=== PATIENT | female | born 1985 | race Hispanic/Latino ===

== ENCOUNTER 2018-07-19 07:56 | Day surgery (SDC) | payer OTHER ==
[2018-07-19 08:05] LABS: Specific Gravity 1.025 (1.005-1.030)
[2018-07-19 08:06] LABS: Absolute Lymphocytes (CBC) 2.6 K/uL (0.7-4.9); Absolute Monocytes 0.4 K/uL (0.1-1.3); Absolute Neutrophil 2.4 K/uL (1.8-8.0); Basophils % 0.6 % (0-1.3); Eosinophils % 1.3 % (0-4.4); Hematocrit 40.3 % (36.0-45.0); Lymphocytes % 46.9 % (15.3-44.8); MPV 9.2 fL (7.6-11.3); Monocytes % 6.8 % (3.3-12.3); RBC Red Blood Cell Count 4.38 M/uL (3.86-4.86)
[2018-07-19] MEDS ORDERED: SCOPOLAMINE HYDROBROMIDE PATCH TD ONE (08:25)
[2018-07-19] MEDS ORDERED: CEFAZOLIN/SWI 1gm 1 GM/10 ML SYR ONE (08:25)
[2018-07-19] MEDS ORDERED: Ringers Lactate 1,000 ML IV ONE ×3 (08:25→08:43)
[2018-07-19] MEDS ORDERED: EPINEPHRINE/PF 1 MG/ML AMP ONE (08:41)
[2018-07-19] MEDS ORDERED: CEFAZOLIN SODIUM 1 GM/VIAL ONE (08:41)
[2018-07-19] MEDS ORDERED: GENTAMICIN SULF 80 MG/2ML INJ ONE (08:42)
[2018-07-19] MEDS ORDERED: BACITRACIN 50000 UNIT VIAL ONE (08:42)
[2018-07-19] MEDS ORDERED: Mastisol Adhesive Liq ONE (08:42)
[2018-07-19] MEDS ORDERED: NA CHLORIDE 0.9% 1,000 ML ONE (08:42)
[2018-07-19] MEDS ORDERED: NS 0.9% VIAL 20 ML ONE (08:43)
[2018-07-19] MEDS ORDERED: MIDAZOLAM HCL 2 MG/2 ML INJ ONE (08:52)
[2018-07-19] MEDS ORDERED: PROPOFOL 200 MG/20 ML VIAL IV ONE (08:52)
[2018-07-19] MEDS ORDERED: DEXAMETHASONE 10 MG/ML VIAL ONE (08:52)
[2018-07-19] MEDS ORDERED: LIDOCAINE 1% MPF 5 ML VIAL ONE (08:53)
[2018-07-19] MEDS ORDERED: VECURONIUM 10 MG/VIAL IV ONE (08:53)
[2018-07-19] MEDS ORDERED: FENTANYL CITR 250 MCG/5 ML ONE ×2 (08:53→11:37)
[2018-07-19] MEDS ORDERED: KETOROLAC 30 MG/ML INJ ONE ×2 (08:53→13:20)
[2018-07-19] MEDS ORDERED: NS 0.9% VIAL 10 ML ONE (08:53)
[2018-07-19] MEDS ORDERED: ONDANSETRON 4 MG/2 ML VIAL ONE ×2 (08:53→13:21)
[2018-07-19] MEDS ORDERED: ROCURONIUM 50 MG/5 ML VIAL IV ONE ×2 (11:03→12:33)
[2018-07-19] MEDS ORDERED: Phenylephrine HCl 10 MG/ML 1 ML VIAL ONE (11:21)
[2018-07-19] MEDS ORDERED: GLYCOPYRROLATE 0.2 MG/ML SYR ONE (13:20)
[2018-07-19] MEDS ORDERED: NEOSTIGMINE 1 MG/ML -10 ML VIAL ONE (13:21)
[2018-07-19] MEDS: HYDROMORPHONE HCL 1 MG/ML INJ ONE ×2 (15:26→15:38)
[2018-07-19] MEDS ORDERED: PROMETHAZINE 25 MG/ML VIAL ONE (15:35)
[2018-07-19] MEDS ORDERED: HYDROMORPHONE HCL 1 MG/ML INJ ONE (15:55)
[2018-07-19] MEDS ORDERED: HYDROCODONE/APAP 7.5/325 MG TAB ONE (16:40)
--- NOTE | 2018-07-20 02:33 | OP ---
Surgeon: Rafael Dowd MD Manager Math: Emanuel. 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 Procedures Performed: Breast lift with fat transfer and liposuction, flanks. Anesthesia: General. Procedure In Detail: After satisfactory induction of general anesthesia, the chest, the abdomen, and flanks were prepped with DuraPrep. Dry sterile drapes were applied in the usual manner. A tumescen t liposuction was performed. An incision made cephalad to anterior iliac spine with a 15-blade. Ab out 2-mm infusion cannula was placed, and both sides were infused approximately 500 cc per side. The n, a 4-mm was used to aspirate. Approximately 450 cc were removed from each side. Wounds were close d later with 4-0 PDS, and liposuction of arm was applied. Attention was turned to the breasts. A 45 -mm template was used to outline the right areola. Then, transverse and curvilinear inferior incisio ns were made. The intervening skin was de-epithelialized with EpiCut or dermabrader. Then, the flap was elevated cephalad toward the clavicle, anterior axillary line, and sternum. Both sides were don e simultaneously. An inferior incision was made. The flap was rotated into cone. Conization was pe rformed with 2-0 PDS sutures, and then straps were elevated at 12 o'clock, 1:30 o'clock position on t he right side, and the 3 o'clock position. Mirror image on the left side. After straps were elevate d, in and out of the pectoralis major muscle, sewn past back to the base of the cone, and eventually tied to themselves with 2-0 PDS. The 3 o'clock strap was sewn over the sternum at 3 o'olya ck position with 2-0 Ethibond. Left side was done in mirror-image manner. The wound was carefully s tapled shut. Dog ears were cut out laterally, and then the wounds were closed after #10 BENJAMIN drain was brought out of the axilla and sewn in place with 2-0 silk, closed with 3-0 Vicryl subcu, 3-0 PDS run stephanie subcuticular, tied in the vertical meridian of the breast. At this point, the patient was sat u p. Site for new nipple-areolar complex was marked out, tissue cored out, nipple delivered, and then the fat that had been aspirated and had been by gravity, and approximately 70 cc were inje cted in the right breast and 94 in the left. The amount of tissue removed from the right breast was 50 and left breast was 76. Then, the nipple-areolar complex was closed with interrupted 4-0 PDS runn ing subcuticular. Dressings consisted of tincture of benzoin, Steri-Strips, 5x5s, fluffs, and Leeroy wr ap. The patient tolerated the procedure well and returned to Recovery. ANA/MIRIAN Voice ID: [id number] Report ID: [id number]
== END 2018-07-19 17:41 | disposition home or self-care (01) ==
LOC: OR 07:56
PROVIDERS: ATTEND Specialist
PROC: 0H0V0ZZ Alteration of Bilateral Breast, Open Approach (ICD-10-PCS; principal; 2018-07-19 09:00)
PROC: 0H0V37Z Alteration of Bilateral Breast with Autologous Tissue Substitute, Percutaneous Approach (ICD-10-PCS; 2018-07-19 09:00)
PROC: 0J083ZZ Alteration of Abdomen Subcutaneous Tissue and Fascia, Percutaneous Approach (ICD-10-PCS; 2018-07-19 09:00)
DX: N64.81 Ptosis of breast (principal); E88.1 Lipodystrophy, not elsewhere classified
CPT/HCPCS: 36415; 81025; 85025; 88305; J0171; J0690; J1100; J1170; J1580; J2250; J2370; J2405; J2550; J2704; J2710; J3010; J7030